=== PATIENT | female | born 2005 | race Caucasian/White ===

== ENCOUNTER 2024-02-05 17:15 | Emergency (ER) | payer OTHER ==
[~2024-02-05] VITALS: Ht 172.7 cm; Wt 68.2 kg
[2024-02-05 17:19] VITALS: BP 128/66; TEMP 97.9
[2024-02-05] MEDS ORDERED: predniSONE 20 MG TAB PO ONE (17:45)
[2024-02-05 19:12] LABS: MONOSCREEN POSITIVE
[2024-02-05] MEDS ORDERED: PREDNISONE20 MG PO (19:18)
[2024-02-05 19:27] VITALS: PULSE 87
== END 2024-02-05 19:28 | disposition home or self-care (01) ==
LOC: COL.ER 17:15
PROVIDERS: Physician Assistant
DX: B27.90 Infectious mononucleosis, unspecified without complication (principal); Z88.1 Allergy status to other antibiotic agents
CPT/HCPCS: J7512